=== PATIENT | male | born 1950 | race Caucasian/White ===

== ENCOUNTER 2023-05-21 08:45 | Day surgery (SDC) | payer OTHER, SELFPAY ==
--- NOTE | 2023-05-20 10:18 | HO.ANESPROP2 ---
Documented by User: Lolita Mcallister NP 05/20/23 10:19 HPI - Anesthesia Eval Consult details Narrative: 72yo M for Colonoscopy PMFSH Past Medical History Medical History (Updated 05/21/23 @ 10:59 by Keyanna Vail MD) Cardiac arrhythmia Cataract Diabetes Elevated cholesterol Gout History of alcohol abuse HTN (hypertension) PTSD (post-traumatic stress disorder) Surgical History Surgical History History of bilateral cataract extraction Hx of colonoscopy Social History Social History Patient Tobacco Use Status: Never used Tobacco Use of substances other than those prescribed or required for medical reasons: No Are you DNR?: No Advance Directives: No Advance Directives Information Provided: Yes Meds Allergies Allergy/AdvReac Type Severity Reaction Status Date / Time No Known Allergies Allergy Verified 05/21/23 10:01 Home Medications Medication Instructions Recorded Confirmed Last Taken Type allopurinol 100 mg tablet 100 mg PO DAILY 05/20/23 05/20/23 Unknown History carvedilol 25 mg tablet 25 mg PO BID 05/20/23 05/20/23 05/21/23 05:00 History celecoxib 100 mg capsule 100 mg PO DAILY 05/20/23 05/20/23 05/14/23 History cetirizine 10 mg tablet 10 mg PO DAILY 05/20/23 05/20/23 Unknown History ferrous gluconate PO DAILY 05/20/23 05/14/23 History gabapentin 300 mg tablet 300 mg PO DAILY 05/20/23 05/20/23 Unknown History insulin glargine 100 unit/mL (3 27 unit subcut DAILY 05/20/23 05/21/23 05/21/23 05:00 History mL) subcutaneous pen (Lantus Solostar U-100 Insulin) metformin 500 mg tablet 500 mg PO BID 05/20/23 05/21/23 Unknown History multivitamin 1 tab PO DAILY 05/20/23 05/20/23 Unknown History omega-3 fatty acids-vitamin E 1 cap PO DAILY 05/20/23 05/20/23 05/14/23 History 1,000 mg capsule terazosin 5 mg capsule 5 mg PO BEDTIME 05/20/23 05/20/23 Unknown History vitamin B complex 1 cap PO DAILY 05/20/23 05/20/23 Unknown History clonidine HCl 0.2 mg tablet 0.2 mg PO BID 05/21/23 05/21/23 05/21/23 05:00 History Exam Exam Date and Time: May 20, 2023 1018 Assessment and Plan Assessment Anesthesia Assessment: Chart Reviewed Documented by User: Keyanna Vail MD 05/21/23 11:51 PMFSH Active Problems Active Problems: Denies alochol use in 10years Increased BMI Past Medical History Medical History (Updated 05/21/23 @ 10:59 by Keyanna Vail MD) Cardiac arrhythmia Cataract Diabetes Elevated cholesterol Gout History of alcohol abuse HTN (hypertension) PTSD (post-traumatic stress disorder) Family History Family history of problems with anesthesia: No Surgical History Surgical History History of bilateral cataract extraction Hx of colonoscopy History of Problems with Anesthesia: No Social History Social History Patient Tobacco Use Status: Never used Tobacco Use of substances other than those prescribed or required for medical reasons: No Are you DNR?: No Advance Directives: No Advance Directives Information Provided: Yes Meds Allergies Allergy/AdvReac Type Severity Reaction Status Date / Time No Known Allergies Allergy Verified 05/21/23 10:01 Home Medications Medication Instructions Recorded Confirmed Last Taken Type allopurinol 100 mg tablet 100 mg PO DAILY 05/20/23 05/20/23 Unknown History carvedilol 25 mg tablet 25 mg PO BID 05/20/23 05/20/23 05/21/23 05:00 History celecoxib 100 mg capsule 100 mg PO DAILY 05/20/23 05/20/23 05/14/23 History cetirizine 10 mg tablet 10 mg PO DAILY 05/20/23 05/20/23 Unknown History ferrous gluconate PO DAILY 05/20/23 05/14/23 History gabapentin 300 mg tablet 300 mg PO DAILY 05/20/23 05/20/23 Unknown History insulin glargine 100 unit/mL (3 27 unit subcut DAILY 05/20/23 05/21/23 05/21/23 05:00 History mL) subcutaneous pen (Lantus Solostar U-100 Insulin) metformin 500 mg tablet 500 mg PO BID 05/20/23 05/21/23 Unknown History multivitamin 1 tab PO DAILY 05/20/23 05/20/23 Unknown History omega-3 fatty acids-vitamin E 1 cap PO DAILY 05/20/23 05/20/23 05/14/23 History 1,000 mg capsule terazosin 5 mg capsule 5 mg PO BEDTIME 05/20/23 05/20/23 Unknown History vitamin B complex 1 cap PO DAILY 05/20/23 05/20/23 Unknown History clonidine HCl 0.2 mg tablet 0.2 mg PO BID 05/21/23 05/21/23 05/21/23 05:00 History Exam Height,Weight and Vital Signs: Height 5 ft 5 in Weight 104.326 kg Vital Signs Temp Pulse Resp BP Pulse Ox O2 Del Method 05/21/23 09:42 97.7 F 58 17 178/97 H 97 Room Air Pertinent Lab Results Pertinent Lab Results: Lab Results 05/21/23 Range/Units 09:58 POC Glucose 142 H (60-115) mg/dL Narrative Narrative: 12 lead EKG obtained- SB 57 with 1st degree AV block with PACs in a pattern of bigeminy. NS ST- T wave abnormality. Patient asymptomatic. Will proceed. Patient advised to follow up with PCP for further evaluation as needed. Airway Mallampati Class: III TM Dist: >3cm Neck ROM: Full Denture: Upper and Lower Heart: ?Regular with ?extra beats. P waves difficult to appreciate consistently on monitor. Patient with h/o arrhythmia. No pre-op EKG available. Will obtain a 12 lead EKG Lungs: CTAB Assessment and Plan Assessment Anesthesia Assessment: Anesthesia Plan Discussed Final Anesthetic Review Family History of Problems with Anesthesia: No History of Problems with Anesthesia: No NPO: Yes ASA Class: III Final Preanesthetic Review: No Changes in Pt Med Stat, Meds/Allgs Chart Reviewed, Consent Obtained/Reviewed and Anes Risks/Benef Reviewed Patient Risk: Intermediate Procedure Risk: Low Assessment/Block/Sedation in SS: Assess/Block/Sedation-SS Anesthetic Plan Anesthetic Plan: MAC: Disposition: Standard PACU Documented by User: Aurelia Thompson MD 05/21/23 11:00 [facility] Past Medical History Medical History (Updated 05/21/23 @ 10:59 by Keyanna Vail MD) Cardiac arrhythmia Cataract Diabetes Elevated cholesterol Gout History of alcohol abuse HTN (hypertension) PTSD (post-traumatic stress disorder) Surgical History Surgical History History of bilateral cataract extraction Hx of colonoscopy Social History Social History Patient Tobacco Use Status: Never used Tobacco Use of substances other than those prescribed or required for medical reasons: No Are you DNR?: No Advance Directives: No Advance Directives Information Provided: Yes Meds Allergies Allergy/AdvReac Type Severity Reaction Status Date / Time No Known Allergies Allergy Verified 05/21/23 10:01 Home Medications Medication Instructions Recorded Confirmed Last Taken Type allopurinol 100 mg tablet 100 mg PO DAILY 05/20/23 05/20/23 Unknown History carvedilol 25 mg tablet 25 mg PO BID 05/20/23 05/20/23 05/21/23 05:00 History celecoxib 100 mg capsule 100 mg PO DAILY 05/20/23 05/20/23 05/14/23 History cetirizine 10 mg tablet 10 mg PO DAILY 05/20/23 05/20/23 Unknown History ferrous gluconate PO DAILY 05/20/23 05/14/23 History gabapentin 300 mg tablet 300 mg PO DAILY 05/20/23 05/20/23 Unknown History insulin glargine 100 unit/mL (3 27 unit subcut DAILY 05/20/23 05/21/23 05/21/23 05:00 History mL) subcutaneous pen (Lantus Solostar U-100 Insulin) metformin 500 mg tablet 500 mg PO BID 05/20/23 05/21/23 Unknown History multivitamin 1 tab PO DAILY 05/20/23 05/20/23 Unknown History omega-3 fatty acids-vitamin E 1 cap PO DAILY 05/20/23 05/20/23 05/14/23 History 1,000 mg capsule terazosin 5 mg capsule 5 mg PO BEDTIME 05/20/23 05/20/23 Unknown History vitamin B complex 1 cap PO DAILY 05/20/23 05/20/23 Unknown History clonidine HCl 0.2 mg tablet 0.2 mg PO BID 05/21/23 05/21/23 05/21/23 05:00 History Assessment and Plan Final Anesthetic Review ASA Class: III Patient Risk: Intermediate Procedure Risk: Low Anesthetic Plan Anesthetic Plan: MAC: Disposition: Standard PACU
[2023-05-21] VITALS (13 sets, daily range): BP systolic 162–232; BP diastolic 75–107; PULSE 55–65; RESP 16–18; TEMP 36.2–36.5; O2SAT 96–97; BMI 38.3
--- OUTSIDE RECORDS SUMMARY | 2023-05-21 08:47 | XMS_ITS | Continuity of Care Document ---
Author Name Unknown Organization [facility] ter Address [address] [place] [id number]- Care Team Providers Care [employer] Supervisor Name Role Phone Concepcion Diego MD Primary Care Physician Encounter [facility] Date(s): 01/10/23 - 01/10/[address] [address]- Encounter Diagnosis Left knee sprain(Final) - 01/10/23 Discharge Disposition: A-D/C Home Attending Physician: Jeanie Lomax MD Admitting Physician: Jeanie Lomax MD Referring Physician: Not on Staff, Referring MD Allergies, Adverse Reactions, Alerts No Known Allergies Immunizations Given and Recorded Vaccine Date Status Refusal Reason influenza virus vaccine, inactivated 1 07/30/17 Gi chas influenza virus vaccine, inactivated 10/22/09 Give n tetanus/diphtheria/pertussis, acel(Tdap) 11/16/13 Given pneumococcal 23-valent vaccine 10/22/09 Given 1Early/Late Reason: Other : appropriate time for patient Medications Acyclovir Tablet 400 mg, Daily, Maintenance, 12/20/16 14:08:15 Start Date: 12/20/16 Status: Ordered Allopurinol 100, mg, By Mouth, Daily, 0, 0, 11/18/08 16:43:59, Print CHAYITO Number, [id number], Constant Indicator Start Date: 11/18/08 Status: Ordered amLODIPine 10 mg oral tablet 10 mg, 1, tablet, By Mouth, Daily, # 30 tablet, Refills 0, Tot. Refills 0, Maintenance, 12/24/16 10:57:38, Print Requisition Start Date: 12/24/16 Status: Ordered carvedilol 12.5 mg oral tablet 12.5 mg, 1, tablet, By Mouth, 2 times a day, # 60 tablet, Refills 0, Maintenance, 07/29/17 20:02:27 Start Date: 07/29/17 Status: Ordered cloNIDine 0.1 mg oral tablet 0.1 mg, 1, tablet, By Mouth, 2 times a day, # 60 tablet, Refills 0, Maintenance, 07/29/17 17:49:17 Start Date: 07/29/17 Status: Ordered diclofenac 1% topical gel 1 application, Topically, 4 times a day, # 100 Gm, 0 Refills, Maintenance, 01/10/23 17:33:00 EDT, Gel, [facility]/pharmacy #[id number], Partial fill upon patient request if the prescription is for a schedule II opioid drug., 165, cm, 01/10/23 9:31:00 EDT, Height,... Start Date: 01/10/23 Status: Ordered ferrous sulfate 324 mg oral tablet 1 tablet = 324 mg, By Mouth, Daily, 0 Refills Start Date: 10/22/09 Stop Date: 11/20/09 Status: Ordered Fish Oil oral capsule = 1,200 mg, By Mouth, Daily, 0 Refills Start Date: 10/22/09 Status: Ordered Glucose Monitor See Instructions, # 1 each, Maintenance, Free style fredom lite, 07/31/17 12:48:07, Compound Start Date: 07/31/17 Status: Ordered Glucose Test Strips See Instructions, # 100 strip(s), Maintenance, Freestyle Carson Lite, 07/31/17 12:48:11, Compound Start Date: 07/31/17 Status: Ordered hydrALAZINE 50 mg oral tablet 1 tablet = 50 mg, By Mouth, 3 times a day, # 90 tablet, 0 Refills, Maintenance, 07/29/17 20:02:47, Tablet Start Date: 07/29/17 Status: Ordered Lancets See Instructions, # 100 each, Maintenance, Freestyle Carson Lite, 07/31/17 12:48:14, Compound Start Date: 07/31/17 Status: Ordered Lantus Solostar Pen 100 units/mL subcutaneous solution = 30 units, Subcutaneous Injection, Daily, # 10 mL, 0 Refills, Maintenance, 07/31/17 11:12:07, Solution Start Date: 07/31/17 Status: Ordered metFORMIN 500 mg oral tablet, extended release = 500 mg, By Mouth, Daily, # 30 tablet, 0 Refills, Maintenance, 07/31/17 11:14:50, ER Tablet Start Date: 07/31/17 Status: Ordered omeprazole 40 mg oral enteric coated capsule 1 capsule = 40 mg, By Mouth, 2 times a day, # 60 capsule, 0 Refills, 0, EC Capsule Start Date: 10/23/09 Status: Ordered simvastatin 80 mg oral tablet 1 tablet = 80 mg, By Mouth, Daily at bedtime, # 30 tablet, 0 Refills, Maintenance, 12/20/16 14:05:35, Tablet Start Date: 12/20/16 Status: Ordered Super B Complex 1 capsule, By Mouth, Daily, 0 Refills Start Date: 10/22/09 Stop Date: 11/20/09 Status: Ordered Tramadol = 50 mg, By Mouth, 3 times a day, PRN Pain , Mild, 0 Refills, Maintenance, 12/20/16 14:05:10 Start Date: 12/20/16 Status: Ordered Tylenol Extra Strength 500 mg oral tablet 2 tablet = 1,000 mg, By Mouth, Every 6 hours, PRN for pain, for 360 days, # 100 tablet, 0 Refills, Acute 01/05/24 17:33:00 EDT, 01/10/23 17:33:00 EDT, Tablet, [facility]/pharmacy #[id number], Partial fill upon patient request if the prescription is for a schedule... Start Date: 01/10/23 Stop Date: 01/05/24 Status: Ordered Problem List Condition Confirmation Course Effective Dates Status Health St atus Informant Obese class II Confirmed Active Results Radiology Reports * Exam Date Time Procedure Performing Provider Status 01/10/23 5:05 PM US Doppler Ext Lower Venous Left Thomp son , Stefania; Auth (Verified) Notes: (US Doppler Ext Lower Venous Left) Reason For Exam: Pain in limb;Other: RESULT: US Doppler Ext Lower Venous Left US Doppler Ext Lower Venous Left HX OF PRESENT ILLNESS: : lt knee pain x 1 month : [facility] for [facility] not any better ambulates wellslight limp noted; Reason: Other:; Pain in limb; Clinical Question(s): Thrombus COMPARISON: None IMAGING TECHNIQUE: Ultrasound of the veins from the groin through the calf was performed using grayscale, color, and spectral Doppler ultrasound assessing for complete compressibility and normal flowcharacteristics. FINDINGS: Common femoral vein: Patent. No thrombosis. Femoral vein: Patent. No thrombosis. Popliteal vein: Patent. No thrombosis. Gastrocnemius veins: The visualized portions are patent without evidence of thrombosis. Peroneal veins: The visualized portions are patent without evidence of thrombosis. Posterior tibial veins: The visualized portions are patent without evidence of thrombosis. Contralateral common femoral vein: Patent. No thrombosis. OTHER FINDINGS: None. IMPRESSION: No evidence of deep venous thrombosis. I have personally reviewed the images and I agree with this report. WSN: [id number] Ordering Physician: Jeanie Lomax Dictated By: Michelle Andrews MD Dictated Date/Time: 01/10/23 5:15 pm Reviewed By: Kashif Duarte MD Signed By: Kashif Duarte MD Signed Date/Time: 01/10/23 5:20 pm Transcribed By: CLAIRE Transcribed Date/Time: 01/10/23 5:12 pm * Exam Date Time Procedure Performing Provider Status 01/10/23 10:17 AM Knee 1 or 2 Views Left Mee Mckeon ica; Auth (Verified) Notes: (Knee 1 or 2 Views Left) Reason For Exam: with Pain;Trauma RESULT: Knee 1 or 2 Views Left Knee 1 or 2 Views Left, 2 views Hx of Present Illness: : lt knee pain x 1 month: [facility] for [facility] not any better ambulates well slight limp noted; Reason: Trauma; with Pain; Clinical Question(s): Fracture COMPARISON: None available. FINDINGS: There is no evidence of acute or healing fracture, dislocation or bone lesion. Mild tricompartmental degenerative osteoarthritis, most prominent at the medial compartment of the knee, but no evidence of osteochondral defect or intra- articular loose body. Small suprapatellar joint effusion. IMPRESSION: Small suprapatellar joint effusion. Otherwise no acute abnormality. Mild tricompartmental degenerative osteoarthritis. I have personally reviewed the images and I agree with this report. WSN: [id number] Ordering Physician: Mario Martel Dictated By: Madeleine Che MD Dictated Date/Time: 01/10/23 10:42 a Reviewed By: Tim Gil MD, V Signed By: Tim Gil MD, V Signed Date/Time: 01/10/23 10:47 am Transcribed By: CLAIRE Transcribed Date/Time: 01/10/23 10:40 am Vital Signs Most recent to oldest [Reference Range]: 1 2 3 Height 165 cm (01/10/23 9:31 AM) Weight 104.5 kg (01/10/23 9:31 AM) Oxygen Saturation [94-100 %] 96 % (01/10/23 1:43 PM) 99 % (01/10/23 9:31 AM) 99 % (01/10/23 9:27 AM) Pulse Rate [55-90 bpm] 58 bpm (01/10/23 1:43 PM) 65 bpm (01/10/23 9:31 AM) 72 bpm (01/10/23 9:27 AM) Body Mass Index [18.5-24.99 kg/m2] 38.38 kg/m2 *>HHI* (01/10/23 9:31 AM) Blood Pressure [90-138/55-84 mm Hg] 182/80mm Hg *H* (01/10/23 1:43 PM) 168/70mm Hg *H* (01/10/23 9:31 AM) Respiratory Rate [16-30 br/min] 18 br/min (01/10/23 1:43 PM) 16 br/min (01/10/23 9:31 AM) Temperature [96.8-100.4 DegF] 97.8 DegF (01/10/23 1:43 PM) 97.7 DegF (01/10/23 9:31 AM) Mode of Delivery (Oxygen) Room air (01/10/23 1:43 PM) Room air (01/10/23 9:31 AM) Room air (01/10/23 9:27 AM) Blood pressure sites Arm, right (01/10/23 1:43 PM) Arm, right (01/10/23 9:31 AM) Temperature Route Oral (01/10/23 1:43 PM) Oral (01/10/23 9:31 AM) Dry Weight 104.5 kg (01/10/23 9:31 AM) Weight Obtained Via Standing scale (01/10/23 9:31 AM) Dry Weight Obtained Via Standing scale (01/10/23 9:31 AM) Note * Dami ARORA, Jeanie E: PERFORM Event Display: Patient Education Leaflets Authored Date: [id number] Knee Sprain ?? [id number] Knee Sprain A sprain is an injury to the ligaments or capsule that holds a joint together. There are no broken bones. Most sprains take 3 to 6 weeks to heal. If it's a severe sprain where the ligament is completely torn, it can take months to recover. Most knee sprains are treated with a splint, knee immobilizer brace, or elastic wrap for support. Severe sprains may rarely require surgery. Home care ??? Stay off the injured leg as much as possible until you can walk on it without pain. If you have a lot of pain with walking, crutches or a walker may be prescribed. (These can be rented or purchased at many pharmacies and surgical or orthopedic supply stores). Follow your healthcare provider's advice about when to begin putting weight on that leg. ??? Keep your leg raised (elevated) to reduce pain and swelling. When sleeping, place a pillow under the injured leg. When sitting, support the injured leg so it's above heart level. This is very important during the first 48 hours. ???Apply an ice pack over the injured area for 15 to 20 minutes every??2 to 3 ??hours. You should do this for??the first??24 to 48 hours.??To make an ice pack, put ice cubes in a plastic bag that seals at the top. Wrap the bag in a thin towel. Continue to use ice packs to ease pain and swelling as needed. As the ice melts, be careful to avoid getting your wrap, splint, or cast wet. After 48 to 72 hours or as directed by your healthcare provider, apply heat??(warm shower or??warm bath)??for 15 to 20 minutes several times a day, or alternate ice and heat.??You can place the ice pack directly over the splint. If you have to wear a bbyw-swa-iicb??knee brace, you can open it to apply the ice pack, or heat, directly to the knee. Never put ice directly on the skin. Always wrap the ice in a towel orother type of cloth. ??? You may use??hlxg-ykz-punieuo pain medicine??to control pain, unless another pain medicine was prescribed. If you have chronic liver or kidney disease, ever had a stomach ulcer or gastrointestinal bleeding, or take a blood thinner, talk with your healthcare provider before??using these medicines. ??? If you were given a splint, keep it completely dry at all times. Bathe with your splint out of the water, protected with??2 large plastic bags, sealed with rubber bands or tape at the top end. If a fiberglass splint gets wet, you can dry it with a chairman emeritus set to cool. If you have a??nhxt-pvc-lvib??knee brace, you can remove this to bathe, unless told otherwise. ?? Follow-up care Follow up with your doctor, or as advised. Any X-rays you had today don???t show any broken bones, breaks, or fractures. Sometimes fractures don???t show up on the first X-ray. Bruises and sprains can sometimes hurt as much as a fracture. These injuries can take time to heal completely. If your symptoms don???t improve or they get worse, talk with your doctor. You may need a repeat X- ray.??If X-rays were taken, you will be told of any new findings that may affect your care. ?? Call 911 Call 911 if you have: ?Shortness of breath ?Chest pain ?? When to get medical advice Call your healthcare provider right away??if any of these occur: ??? The??splint??or knee immobilizer??brace??becomes wet or soft ??? The fiberglass cast or splint stays wet for more than 24 hours ??? Pain or swelling get worse ??? The injured leg??or??toes become cold, blue, numb, or tingly ?? Last Reviewed Date: 2021 ?? [id number] The [employer]. All rights reserved. This information is not intended as a substitute for professional medical care. Always follow your healthcare professional's instructions. ?? * [employer] , CIS S: TRANSCRIBE Gerald ARORA, Kashif: VERIFY Juliana ARORA, Michelle A: SIGN Event Display: Result: Authored Date: [id number] US Doppler Ext Lower Venous Left HX OF PRESENT ILLNESS: : lt knee pain x 1 month : [facility] for [facility] not any better ambulates wellslight limp noted; Reason: Other:; Pain in limb; Clinical Question(s): Thrombus COMPARISON: None IMAGING TECHNIQUE: Ultrasound of the veins from the groin through the calf was performed using grayscale, color, and spectral Doppler ultrasound assessing for complete compressibility and normal flowcharacteristics. FINDINGS: Common femoral vein: Patent. No thrombosis. Femoral vein: Patent. No thrombosis. Popliteal vein: Patent. No thrombosis. Gastrocnemius veins: The visualized portions are patent without evidence of thrombosis. Peroneal veins: The visualized portions are patent without evidence of thrombosis. Posterior tibial veins: The visualized portions are patent without evidence of thrombosis. Contralateral common femoral vein: Patent. No thrombosis. OTHER FINDINGS: None. IMPRESSION: No evidence of deep venous thrombosis. I have personally reviewed the images and I agree with this report. WSN: [id number] Ordering Physician: Jeanie Lomax Dictated By: Michelle Andrews MD Dictated Date/Time: 01/10/23 5:15 pm Reviewed By: Kashif Duarte MD Signed By: Kashif Duarte MD Signed Date/Time: 01/10/23 5:20 pm Transcribed By: CLAIRE Transcribed Date/Time: 01/10/23 5:12 pm XR Knee - left 1 or 2 Views * [employer] , CIS S: TRANSCRIBE Madeleine Che MD: SIGN Tim Gil MD V: VERIFY Event Display: Result: Authored Date: [id number] Knee 1 or 2 Views Left, 2 views Hx of Present Illness: : lt knee pain x 1 month: [facility] for [facility] not any better ambulates well slight limp noted; Reason: Trauma; with Pain; Clinical Question(s): Fracture COMPARISON: None available. FINDINGS: There is no evidence of acute or healing fracture, dislocation or bone lesion. Mild tricompartmental degenerative osteoarthritis, most prominent at the medial compartment of the knee, but no evidence of osteochondral defect or intra- articular loose body. Small suprapatellar joint effusion. IMPRESSION: Small suprapatellar joint effusion. Otherwise no acute abnormality. Mild tricompartmental degenerative osteoarthritis. I have personally reviewed the images and I agree with this report. WSN: [id number] Ordering Physician: Mario Martel Dictated By: Madeleine Che MD Dictated Date/Time: 01/10/23 10:42 a Reviewed By: Tim Gil MD, V Signed By: Tim iGl MD, V Signed Date/Time: 01/10/23 10:47 am Transcribed By: CSAvril Transcribed Date/Time: 01/10/23 10:40 am Patient Care team information Care Team Personnel Name: David Arredondo MD Position: [facility] Renal MD Member Role: Lifetime Consulting Physician Address: Address: [address] [place] [address], [address] [facility] [place] [address]- Name: Concepcion Diego MD Position: Reference Physician Member Role: PCP Address: Address: [address] [place] [address]- Name: Jordan Mann RN Position: [facility] RN Member Role: Primary Care Nurse Name: Parris Ochoa Position: [facility] PCO RN Member Role: Lifetime Consulting Physician Name: Lolita Bonner RN Position: [facility] RN Member Role: Primary Care Nurse Name: Jeanie Lomax MD Position: [facility] ED Medicine MD Member Role: Admitting Physician Address: Address: [address] [place] [address] [place] [address]- Name: Nedra Stubbs RN Position: [facility] ED RN W/OE and Tasks Member Role: Patient Care Provider Care Team Related Persons Name: KIET RANDEE Address: home [address] [place] [id number]
--- OUTSIDE RECORDS SUMMARY | 2023-05-21 08:47 | XMS_ITS | Continuity of Care Document ---
Author Name Unknown Organization [facility] ter Address [address] [place] [id number]- Care Team Providers Care Stewardesses Teacher Name Role Phone Concepcion Diego MD Primary Care Physician [phone] [place] [facility] [place] - 12/10/[address] [address]- Discharge Disposition: A-D/C Home Attending Physician: Jeanie [...] 0, 0, 11/18/08 16:43:59, Print CHAYITO Number, [phone], Constant Indicator Start Date: 11/18/08 Status: Ordered amLODIPine 10 mg oral tablet 10 mg, Tablet, By Mouth, Once, STAT, 12/10/21 19:06:00 EDT, Stop date 12/10/21 19:06:00 EDT Start Date: 12/10/21 Stop Date: 12/10/21 Status: Completed amLODIPine 10 mg oral tablet 10 mg, [...] 07/29/17 17:49:17 Start Date: 07/29/17 Status: Ordered ferrous sulfate 324 mg oral [...] See Instructions, # 100 strip(s), Maintenance, Freestyle [place] Lite, 07/31/17 12:48:11, Compound Start Date: 07/31/17 Status: Ordered hydrALAZINE 25 mg oral tablet 100 mg, Tablet, By Mouth, Once, STAT, 12/10/21 19:06:00 EDT, Stop date 12/10/21 19:06:00 EDT Start Date: 12/10/21 Stop Date: 12/10/21 Status: Completed hydrALAZINE 50 mg oral tablet 1 tablet = 50 mg, By Mouth, 3 times a day, # 90 tablet, 0 Refills, Maintenance, 07/29/17 20:02:47, Tablet Start Date: 07/29/17 Status: Ordered Lancets See Instructions, # 100 each, Maintenance, Freestyle [place] Lite, 07/31/17 12:48:14, Compound Start Date: 07/31/17 [...] 12/20/16 14:05:10 Start Date: 12/20/16 Status: Ordered Results Radiology Reports * Exam Date Time Procedure Performing Provider Status 12/10/21 5:04 PM XR Hip w/Pelvis 2-3 View Right Lucy Rogers; Auth (Verified) Notes: (XR Hip w/Pelvis 2-3 View Right) Reason For Exam: With Pain;Trauma RESULT: XR Hip w/Pelvis 2-3 View Right AP pelvis and right hip 3 views dated December 10, 2021. No prior studies are available. HISTORY: Pain. FINDINGS: This examination shows no evidence of fracture or dislocation. Joint spaces are fairly well-preserved. No radiopaque foreign body or soft tissue gas is noted. IMPRESSION: No evidence of acute osseous abnormality. Thank you for allowing me to participate in the care of this patient. WSN: [id number] Ordering Physician: Hernán Ardon Dictated By: Viral Timmons MD Dictated Date/Time: 12/10/21 5:15 pm Reviewed By: Viral Timmons MD Signed By: Viral Timmons MD Signed Date/Time: 12/10/21 5:15 pm Transcribed By: CLAIRE Transcribed Date/Time: 12/10/21 5:13 pm Vital Signs Most recent to oldest [Reference Range]: 1 2 3 Height 165 cm (12/10/21 2:30 PM) Weight 91 kg (12/10/21 2:30 PM) Oxygen Saturation [94-100 %] 100 % (12/10/21 8:19 PM) 100 % (12/10/21 6:26 PM) 99 % (12/10/21 5:35 PM) Pulse Rate [55-90 bpm] 58 bpm (12/10/21 8:19 PM) 68 bpm (12/10/21 6:26 PM) 56 bpm (12/10/21 5:35 PM) Blood Pressure [90-138/55-84 mm Hg] 167/86mm Hg *H* (12/10/21 8:19 PM) 225/86mm Hg *H* (12/10/21 7:20 PM) 225/86mm Hg *H* (12/10/21 7:20 PM) Respiratory Rate [16-30 br/min] 16 br/min (12/10/21 8:19 PM) 26 br/min (12/10/21 6:26 PM) 11 br/min *L* (12/10/21 5:35 PM) Temperature [96.8-100.4 DegF] 98.3 DegF (12/10/21 3:07 PM) 98.1 DegF (12/10/21 2:30 PM) Mode of Delivery (Oxygen) Room air (12/10/21 8:19 PM) Room air (12/10/21 6:26 PM) Room air (12/10/21 5:35 PM) Blood pressure sites Arm, right (12/10/21 8:19 PM) Arm, right (12/10/21 6:26 PM) Arm, right (12/10/21 5:35 PM) Temperature Route Oral (12/10/21 3:07 PM) Oral (12/10/21 2:30 PM) Dry Weight 91 kg (12/10/21 2:30 PM)
--- OUTSIDE RECORDS SUMMARY | 2023-05-21 08:47 | XMS_ITS | Continuity of Care Document ---
Author Name Unknown Organization [facility] ter Address [address] [place] [id number]- Care Team Providers Care Medical Office Administrator Name Role Phone Concepcion Diego MD Primary Care Physician [phone] [place] [facility] - 07/21/[address] [address]- Encounter Diagnosis Sciatica(Final) - 07/21/22 Discharge Disposition: A-D/C Home Attending Physician: Vane Sutton DO Admitting Physician: Vane Sutton DO Referring Physician: Not on Staff, Referring MD Allergies, Adverse Reactions, Alerts No Known Allergies Immunizations Given and Recorded Vaccine Date Status Refusal Reason influenza virus vaccine, inactivated 1 07/30/17 Gi chas influenza virus vaccine, inactivated 10/22/09 Give n tetanus/diphtheria/pertussis, acel(Tdap) 11/16/13 Given pneumococcal 23-valent vaccine 10/22/09 Given 1Early/Late Reason: Other : appropriate time for patient Medications acetaminophen 500 mg oral tablet 2 tablet = 1,000 mg, By Mouth, Every 6 hours, PRN as needed for pain, for 5 days, # 40 tablet, 0 Refills, Acute 07/26/22 12:24:00 EDT, 07/21/22 12:24:00 EDT, Tablet, [id number], Partial fill upon patient request if the prescription is for a sc... Start Date: 07/21/22 Stop Date: 07/26/22 Status: Ordered Acyclovir Tablet 400 mg, Daily, Maintenance, 12/20/16 14:08:15 Start Date: 12/20/16 Status: Ordered Allopurinol 100, mg, By Mouth, Daily, 0, 0, 11/18/08 16:43:59, Print CHAYITO Number, [phone], Constant Indicator Start Date: 11/18/08 Status: Ordered [...] See Instructions, # 100 strip(s), Maintenance, Freestyle [place] Lite, 07/31/17 12:48:11, Compound Start Date: 07/31/17 Status: Ordered hydrALAZINE 50 mg oral tablet 1 tablet = 50 mg, By Mouth, 3 times a day, # 90 tablet, 0 Refills, Maintenance, 07/29/17 20:02:47, Tablet Start Date: 07/29/17 Status: Ordered Lancets See Instructions, # 100 each, Maintenance, Freestyle [place] Lite, 07/31/17 12:48:14, Compound Start Date: 07/31/17 [...] 12/20/16 14:05:10 Start Date: 12/20/16 Status: Ordered Problem List Condition Confirmation Course Effective Dates Status Health St atus Informant Obese class II Confirmed Active Results Radiology Reports * Exam Date Time Procedure Performing Provider Status 07/21/22 10:28 AM XR Hip w/Pelvis 2-3 View Right Nedra Larios; Auth (Verified) Notes: (XR Hip w/Pelvis 2-3 View Right) Reason For Exam: Pain RESULT: XR Hip w/Pelvis 2-3 View Right XR Hip w/Pelvis 2-3 View Right Hx of Present Illness: pt states having right sided pain right flank area states feels like the pain in right kidney area states travels down right leg states ongoing [facility]; Reason: Pain; Clinical Question(s): Fracture COMPARISON: 12/10/2021 TECHNIQUE: AP view the pelvis and coned AP and frog-leg views of the right hip are obtained. FINDINGS: There is no fracture or dislocation. Normal hips and sacroiliac joints for age with only minimal spurring of the acetabular roof and femoral head. Normal soft tissues. IMPRESSION: No acute findings. Stable exam. WSN: [id number] Ordering Physician: Rbeeca Morales Dictated By: Ayo Olivares MD Dictated Date/Time: 07/21/22 10:48 a Reviewed By: Ayo Olivares MD Signed By: Ayo Olivares MD Signed Date/Time: 07/21/22 10:48 am Transcribed By: CLAIRE Transcribed Date/Time: 07/21/22 10:46 am Vital Signs Most recent to oldest [Reference Range]: 1 2 3 Height 165 cm (07/21/22 11:42 AM) 165 cm (07/21/22 11:20 AM) 165 cm (07/21/22 11:20 AM) Weight 97.8 kg (07/21/22 11:42 AM) 97.8 kg (07/21/22 11:20 AM) 97.8 kg (07/21/22 11:20 AM) Oxygen Saturation [94-100 %] 99 % (07/21/22 11:42 AM) 96 % (07/21/22 11:20 AM) 100 % (07/21/22 8:46 AM) Pulse Rate [55-90 bpm] 50 bpm *L* (07/21/22 11:42 AM) 54 bpm *L* (07/21/22 11:20 AM) 63 bpm (07/21/22 8:46 AM) Body Mass Index [18.5-24.99 kg/m2] 35.92 kg/m2 *>HHI* (07/21/22 11:42 AM) 35.92 kg/m2 *>HHI* (07/21/22 11:20 AM) 35.92 kg/m2 *>HHI* (07/21/22 11:20 AM) Blood Pressure [90-138/55-84 mm Hg] 192/69mm Hg *H* (07/21/22 11:42 AM) 171/64mm Hg *H* (07/21/22 11:20 AM) 184/71mm Hg *H* (07/21/22 11:20 AM) Respiratory Rate [16-30 br/min] 16 br/min (07/21/22 11:42 AM) 20 br/min (07/21/22 11:20 AM) 18 br/min (07/21/22 8:46 AM) Temperature [96.8-100.4 DegF] 97.6 DegF (07/21/22 11:20 AM) 97.4 DegF (07/21/22 8:46 AM) Mode of Delivery (Oxygen) Room air (07/21/22 11:42 AM) Room air (07/21/22 11:20 AM) Room air (07/21/22 8:46 AM) Blood pressure sites Arm, left (07/21/22 11:20 AM) Arm, right (07/21/22 11:20 AM) Arm, left (07/21/22 8:46 AM) Temperature Route Oral (07/21/22 11:20 AM) Oral (07/21/22 8:46 AM) Dry Weight 97.8 kg (07/21/22 11:42 AM) 97.8 kg (07/21/22 11:20 AM) 97.8 kg (07/21/22 11:20 AM) Weight Obtained Via Standing scale (07/21/22 8:46 AM) Dry Weight Obtained Via Standing scale (07/21/22 8:46 AM) XR Pelvis and Hip - right Views * [facility] , CIS S: TRANSCRIBE Ayo Olivares MD: VERIFY Event Display: Result: Authored Date: [id number] XR Hip w/Pelvis 2-3 View Right Hx of Present Illness: pt states having right sided pain right flank area states feels like the pain in right kidney area states travels down right leg states ongoing for 3 [facility]; Reason: Pain; Clinical Question(s): Fracture COMPARISON: 12/10/2021 TECHNIQUE: AP view the pelvis and coned AP and frog-leg views of the right hip are obtained. FINDINGS: There is no fracture or dislocation. Normal hips and sacroiliac joints for age with only minimal spurring of the acetabular roof and femoral head. Normal soft tissues. IMPRESSION: No acute findings. Stable exam. WSN: [id number] Ordering Physician: Rebeca Morales Dictated By: Ayo Olivares MD Dictated Date/Time: 07/21/22 10:48 a Reviewed By: Ayo Olivares MD Signed By: Ayo Olivares MD Signed Date/Time: 07/21/22 10:48 am Transcribed By: CLAIRE Transcribed Date/Time: 07/21/22 10:46 am Patient Care team information Personnel Name: Concepcion Diego MD Address: Address: [address] [place] [id number]
[2023-05-21] MEDS: Lactated Ringers 1,000 ML 100 ML IVCONT (10:00)
[2023-05-21 10:09] LABS: Glucose, Whole Blood 142 mg/dL (60-115)
--- NOTE | 2023-05-21 10:58 | ECG_ITS ---
Test Reason : IRREG RHYTHM Blood Pressure : / mmHG Vent. Rate : 057 BPM Atrial Rate : 057 BPM P-R Int : 256 ms QRS Dur : 084 ms QT Int : 394 ms P-R-T Axes : 075 -04 099 degrees QTc Int : 383 ms Sinus bradycardia with 1st degree A-V block with Premature atrial complexes in a pattern of bigeminy Nonspecific ST and T wave abnormality Abnormal ECG No previous ECGs available Referred By: Keyanna Vail Electronically Signed By:ROSI KINSEY
--- NOTE | 2023-05-21 11:03 | MHC.SHP ---
Pre-Procedural Eval Section A Date of Service: 05/21/23 Section B Chief Complaint: Anemia, unspecified, Other fecal abnormalities Details of Present Illness: see H&P no changes Relevant Family History (Specify if Yes): No Relevant Social History: None Present Medications: see Short Stay Collaborative assessment Medical History: No relevant PMH Allergies: Allergies Allergy/AdvReac Type Severity Reaction Status Date / Time No Known Allergies Allergy Verified 05/21/23 10:01 Review of Systems Sugical H&P ROS: Negative: Constitution, Cardiovascular, Respiratory, Neurological, Psychiatric, Hem-Onc, Allergic/Immunologic, Gastrointestinal, Genitourinary, Musculoskeletal, Integumentary, Endocrine and Eyes/Ears/Nose/Throat Exam Surgical H&P Exam: Normal: HEENT, Normal: Heart, Normal: Lungs, Normal: Extremities, Normal: Abdomen, Normal: Skin and Normal: Neurological Plan Diagnosis/Plan: Unchanged I have reviewed the history and physical and performed a pertinent physical examination on my patient. No changes have occurred unless specified. Time Spent With Patient Time: Total time managing care of this patient today ____ minutes.
--- NOTE | 2023-05-21 11:55 | PC.NURSE ---
hx cardiac arrythymia but no ekg found in our records. ekg done per anes request. ok'd to proceed after ekg reviewed by anesthesia.
--- NOTE | 2023-05-21 12:52 | PM.OP ---
Brief Operative Note Date of Service: 05/21/23 Pre-op diagnosis: blood in stool Post-op diagnosis: same Surgeon: Rajat Yañez Anesthesia: MAC Was an Property Inspector used for this Procedure?: No Estimated blood loss (mL): 0 Pathology: other Condition: stable Disposition: PACU
[2023-05-21] MEDS: hydrALAZINE HCl 20 MG/ML VIAL 5 MG IVPUSH ×2 (13:36→14:26)
--- NOTE | 2023-05-21 13:45 | OP_ITS ---
DATE OF SERVICE: 05/21/2023 SURGEON: Rajat Yañez MD INDICATIONS: Blood in stool. PREOPERATIVE DIAGNOSIS: POSTOPERATIVE DIAGNOSIS: PROCEDURE PERFORMED: Colonoscopy to the cecum with snare polypectomies. ESTIMATED BLOOD LOSS: COMPLICATIONS: ANESTHESIA: Monitored anesthesia care. ASSISTANTS: SPECIMENS: DESCRIPTION OF PROCEDURE: A history and physical performed. The risks and benefits of the procedure were explained to the patient. Informed consent was obtained. The patient was placed in the left lateral decubitus position. A digital rectal exam was performed and was found to be normal. The Olympus pediatric video colonoscope was introduced into the rectum and advanced to the cecum. The cecum was identified by transillumination, palpation, and identification of ileocecal valve. Examination was performed. The scope was removed. He tolerated the procedure well and was returned to recovery area in stable condition. FINDINGS: There was a moderate amount of liquid and formed stool left in the colon, which limited sensitivity examination for detection of small polyps. This was washed and suctioned as best possible. Multiple colonic polyps were present. These were removed with a snare. The largest measured approximately 10 mm to 12 mm and 3 of these polyps were located at 60 cm. A 4th polyp at 60 cm measured less than 5 mm. Other polyps were located in the cecum x2, hepatic flexure x2, proximal transverse colon 80 cm, 75 cm, and 40 cm x2. There was extensive sigmoid diverticulosis. Retroflexed examination showed moderate-sized internal hemorrhoids. IMPRESSION: Colon polyps. RECOMMENDATION: Follow up the biopsy results. MD JADEN Doshi/MAUREEN / [id number]
== END 2023-05-21 15:32 | disposition home or self-care (01) ==
PROVIDERS: PCP Internal Medicine; Visit Provider Internal Medicine Gastroenterology
PROC: 0DJD8ZZ Inspection of Lower Intestinal Tract, Via Natural or Artificial Opening Endoscopic (ICD-10-PCS; CPT 45378; principal; 2023-05-21 10:00)
DX: R19.5 Other fecal abnormalities (principal); D64.9 Anemia, unspecified; Z86.010 Personal history of colon polyps; D12.0 Benign neoplasm of cecum; D12.3 Benign neoplasm of transverse colon; D12.4 Benign neoplasm of descending colon; K63.5 Polyp of colon; K57.30 Diverticulosis of large intestine without perforation or abscess without bleeding; K64.8 Other hemorrhoids; I10 Essential (primary) hypertension; E78.5 Hyperlipidemia, unspecified; E11.9 Type 2 diabetes mellitus without complications; I49.9 Cardiac arrhythmia, unspecified; M10.9 Gout, unspecified; F43.10 Post-traumatic stress disorder, unspecified; F10.11 Alcohol abuse, in remission; Z79.4 Long term (current) use of insulin; Z79.899 Other long term (current) drug therapy
CPT/HCPCS: 45385; 82947; 88305; 93005